=== PATIENT | male | born 1950 | race Caucasian/White ===

== ENCOUNTER 2019-06-16 06:55 | Emergency (ER) | payer MEDICARE, BC ==
[~2019-06-16] VITALS: Ht 177.8 cm; Wt 102.3 kg
[~2019-06-16 06:55] MED LIST: ASPI81TA30 PO; ATEN25TA PO; ATOR40TA PO; CLOB15OI3 TOP; COL100C PO; HYDR-3972 PO; [UNRECOGNIZED DRUG - CODE] TOP; [UNRECOGNIZED DRUG - OTHER] PO
[2019-06-16] MEDS ORDERED: dexamethasone 4mg tablet PO ONE (08:25)
[2019-06-16] MEDS ORDERED: LIDOcaine 5% patch TP ONE (08:25)
[2019-06-16] MEDS ORDERED: METH4TAB81 PO (08:28)
[2019-06-16 09:20] VITALS: BP 150/88
== END 2019-06-16 09:26 | disposition home or self-care (01) ==
LOC: ER 06:56
DX: M54.5 Low back pain (principal); I25.10 Atherosclerotic heart disease of native coronary artery without angina pectoris; Z95.1 Presence of aortocoronary bypass graft; Z88.1 Allergy status to other antibiotic agents; Z79.899 Other long term (current) drug therapy; Z79.82 Long term (current) use of aspirin; X58.XXXA Exposure to other specified factors, initial encounter; Y93.89 Activity, other specified; Y92.89 Other specified places as the place of occurrence of the external cause; Y99.8 Other external cause status
CPT/HCPCS: 72100; 99283; J8540

== ENCOUNTER 2025-08-12 13:08 | Emergency (ER) | payer MEDICARE, OTHER ==
[~2025-08-12] VITALS: Ht 177.8 cm; Wt 95.5 kg
[~2025-08-12 13:08] MED LIST changes: +CLOB15OI21 TOP; -CLOB15OI3 TOP; +METH4TAB81 PO
[2025-08-12 13:18] VITALS: TEMP 97.8
--- NOTE | 2025-08-12 14:28 | Physician Documentation ---
History of Present Illness ~ Chief Complaint: Laceration Stated Complaint: HAND LAC Time Seen by MD: 14:08 HPI This is a 75-year-old male who presents with a laceration to his left hand between 1st finger and 2nd finger caused by a knife slipping. Reports the knife was clean and reports tetanus shot in the last 3-4 years. Patient reports no other acute symptoms or concerns including no numbness or loss of range of motion to the hand. Medication Reconciliation Allergies: Coded Allergies: erythromycin base (Verified Allergy, Intermediate, SWELLING OF EYES / ITCHING, 06/16/19) Scheduled Aspirin (Aspirin), 1 TAB PO DAILY, (Reported) Atenolol (Atenolol), 0.5 TAB PO HS, (Reported) Atorvastatin Calcium* (Lipitor*), 1 TABLET PO HS, (Reported) Docusate Sodium (Docusate Sodium), 100 MG PO BID Methylprednisolone (Medrol Dosepak), 4 MG PO DAILY Scheduled PRN Clobetasol Propionate (Clobetasol Propionate), 1 APPLIC TOP Q12H PRN PRN for itching, (Reported) Flurandrenolide (Cordran), 4 MCG TOP PRN PRN for itching, (Reported) Hydrocodone Bit/Acetaminophen (Hydrocodon-Acetaminophn 10-325 tablet), 1 TAB PO Q4H PRN for moderate pain 4-6 [Walfinate], TAB PO DAILY PRN for allergies, (Reported) Past Medical History Past Medical History: Coronary Artery Disease Past Surgical History: coronary bypass surgery Drug Use: none Lives with: Spouse Lives In: Home Occupation: retired Review of Systems ROS As stated above in the HPI, otherwise all systems are reviewed and negative. Physical Exam Vital Signs: Temperature: 97.8, Heart Rate: 79, Respiratory Rate: 16, BP: 130/78, Pulse Oximetry: 96, Weight: 95.450 Oxygen Flow Rate: 0 Physical Exam VITALS: Reviewed and as above. GENERAL: Alert, nontoxic appearing, no apparent distress. RESPIRATORY: No increased work of breathing, no respiratory distress, speaking in full clear sentences CV: Brisk capillary refill to fingers of left hand MUSCULOSKELETAL: Patient and strength intact in left hand SKIN: 2 cm laceration to the webspace between 1st finger and 2nd finger, no evidence of tendon involvement, no evidence of deep tissue involvement NEURO: Sensation intact to fingers of left hand Procedures Laceration/Wound Repair Laceration : Location: Webspace of 1st and 2nd fingers of left hand Length (cm): 2 Anesthesia: Lidocaine w/ Epi Volume Anesthetic (mls): 4 Prep: irrigated by nurse Margins: revised Foreign Body: not identified Repaired: skin Wound Repaired With: sutures Suture Size/Type: 5-0 Number of Superficial Sutures: 7 Layer Closure?: No Dressing Applied: simple, other (Bulky) Splint Applied?: No Sling Applied?: No Tolerated Procedure Well?: yes, no complications Progress Results/Orders Results/Orders Orders - ROBERT BRENNAN Laceration/I&D Tray Set Up (08/12/25 14:18) Wound Care Orders (08/12/25 14:18) Completed Orders - ROBERT BRENNAN Lidocaine 1% W/Epi 1:100,000 (Xylocaine (08/12/25 14:20) Vital Signs 08/12/25 08/12/25 13:18 15:22 Temp 97.8 Pulse 79 79 Resp 16 16 B/P (MAP) 130/78 130/78 Pulse Ox 96 98 O2 Flow Rate 0 Medical Decision Making Additional information obtaine: N/A Findings 75-year-old male presented with a superficial laceration to his left hand in the webspace between 1st and 2nd fingers, laceration was superficial and did not involve deeper tissue or tendons, reassuring the hand is neurovascularly intact with range of motion and strength intact. There was no evidence of retained foreign body in the wound was thoroughly irrigated prior to successful closure with simple interrupted sutures, there was no complications and patient tolerated well. Patient is well-appearing with remainder of physical exam benign no other injuries reported or noted. Patient has had Tdap booster in the last 3-4 years and wound was considered clean as this was with a clean knife cutting packaging. Patient is appropriate for outpatient follow up and provided home care instructions, follow up instructions, and return to care precautions which he verbalized understanding of. Differential Dx:Considerations: Include: Abrasion, Avulsion, Contusion, Laceration, Fracture, Hematoma, Neurovascular injury, Retained foreign body Departure Time of Disposition: 15:18 Disposition: 01 HOME / SELF CARE / HOMELESS Impression: Primary Impression: Laceration Condition: Improved Discharge Instructions: Laceration Care, Adult, [id number] Additional Instructions: Keep the area clean dry and covered, protect the area from further injury. Watch for signs of infection such as redness and swelling to the area or if you develop a fever. Please return to your choice of medical provider in 7-10 days for re-evaluation and suture removal, you may present to the emergency department, your primary care or an urgent care for this. Please follow up with your primary care provider in the next few days. Please return to the emergency department for any new or worsening concerning symptoms. Referrals: NO PRIMARY CARE PROVIDER (PCP) Education Educated: Patient Educated regarding: diagnosis, treatment, prognosis, need for follow up Signature Scribe Signature: No scribe Attestation: The note accurately reflects work and decisions made by me.KYLEIGH Davis 08/13/25 00:26 ROBERT BRENNAN Aug 12, 2025 14:28
[2025-08-12] MEDS: LIDOcaine 1% W/epiNEPHrine 1:100,000 20ml vial IJ ONE (14:33)
[2025-08-12 15:22] VITALS: BP 130/78; PULSE 79; RESP 16; O2SAT 98
== END 2025-08-12 15:26 | disposition home or self-care (01) ==
LOC: ER 13:08
DX: S61.412A Laceration without foreign body of left hand, initial encounter (principal); I25.10 Atherosclerotic heart disease of native coronary artery without angina pectoris; Z88.1 Allergy status to other antibiotic agents; Z95.1 Presence of aortocoronary bypass graft; Z79.82 Long term (current) use of aspirin; Z79.899 Other long term (current) drug therapy; W26.0XXA Contact with knife, initial encounter; Y93.89 Activity, other specified; Y92.89 Other specified places as the place of occurrence of the external cause; Y99.8 Other external cause status
CPT/HCPCS: 12001; 99282; A6402; A6449; J7030; Z7610